=== PATIENT | male | born 1965 | race Caucasian/White ===

== ENCOUNTER 2017-11-06 09:02 | Day surgery (SDC) | payer OTHER ==
[2017-11-06 09:37] LABS: MPV 10.5 fL (7.6-11.3)
[2017-11-06 09:42] LABS: Protime INR 1.04
[2017-11-06 09:54] LABS: Platelet Estimate DECR
--- NOTE | 2017-11-06 12:26 | RAD REPORT ---
EXAM DESCRIPTION: RAD - Myelography Lumbar - 11/06/2017 12:12 pm CLINICAL HISTORY: Back pain, prior L5-S1 fusion, lumbar radiculopathy with patient provided history of new left lower extremity radiculopathy. COMPARISON: CT lumbar spine same date, myelogram and CT lumbar spine August 2014 TECHNIQUE: The myelogram procedure, risks and alternatives to the procedure were discussed with the patient in detail. After answering all questions, both oral and written consent were obtained. Time-o ut procedure was performed. Patient had no contraindicated allergy or medication history. The patient was placed in an oblique prone position on the fluoroscopic table. The skin of the lower back was prepped and draped in the usual sterile fashion. After anesthetizing the skin and deeper sof t tissues with 1% lidocaine, a 22 gauge needle was advanced into the thecal sac at the L3 level. Intrathecal placement was confirmed. Approximately 10 mL of Isovue M 200 contrast material was instil led into the thecal sac. At the conclusion of the procedure the needle was withdrawn and a sterile bandage placed over the pun cture site. The patient tolerated the procedure well without immediate complications. Post-procedure care and precaution instructions were discussed with the patient before the LP procedure. Patient was transferred to same-day surgery for postprocedure monitoring. IMPRESSION: Successful fluoroscopic guided lumbar myelogram performed. Myelogram findings are incorp orated into the CT lumbar spine report. Fluoro time 2 minutes 36 seconds. Exposure was 192.85 mGy.
--- NOTE | 2017-11-06 12:49 | RAD REPORT ---
EXAM DESCRIPTION: CT - Spine Lumbar Wo Con - 11/06/2017 12:09 pm CLINICAL HISTORY: Lumbar radiculopathy, left lower extremity radiculopathy, prior L5-S1 fusion, hist ory of neurostimulator not effective in pain relief per patient. COMPARISON: Lumbar myelogram images same date, myelogram and CT lumbar spine images August 2014 TECHNIQUE: Thin section axial imaging of the lumbar spine was performed. Sagittal and coronal recon struction images were generated and reviewed. Axial thin section angled images through each disc spac e also generated and reviewed. All CT scans are performed using dose optimization technique as appropriate and may include automated exposure control or mA/KV adjustment according to patient size. FINDINGS: L1 body shows a slight wedge configuration that is stable from the prior imaging. This cou ld be the sequela of an old injury or normal anatomic variant. No active L1 process seen. The L2- L5 bodies are normal in height and alignment. There is a well-healed L5-S1 fusion. No fracture of the fu rico hardware identifiable. No acute bone process identifiable. Since the last examination neurostimulator device has been placed. Wires enter the central canal in t he T12-L1 region. Normal appearing conus terminates mid L2. No clumping or thickening of the cauda equina. No myelogram findings of arachnoiditis. T12-L1 level: No herniation or significant disc bulge. No canal or foramen stenosis. Endplate spurrin g changes are present anteriorly and laterally. L1-L2 level: No herniation or significant disc bulge within the central canal. No central spinal sten osis. Mild bilateral foraminal disc bulge changes not resulting in encroachment. Mild facet degenerat vivian change. L2-3 level: No herniation or significant disc bulge. No canal or foramen stenosis. Minimal facet join t degenerative change. L3-4 level: No herniation or significant disc bulge in the central canal. No spinal stenosis. Mild fo raminal disc bulge not causing encroachment. Facet joint degenerative changes are present. L4-5 level: No herniation or significant disc bulge within the central canal. Left foraminal disc bul ge changes are present slightly increased over the prior study. Left L4 pars interarticularis defect has developed since 2014. No subluxation component. Facet joint degenerative changes are progressive. Thecal sac is approximately 13 13 mm AP x 11 mm TR. Prominent facet joint degenerative changes are p resent. The hypertrophy along the medial margin of the right facet does encroach into the thecal sac. These degenerative changes are progressive from 2015. Left-sided facet degenerative changes are prog ressive as well without same degree of central canal encroachment. L5-S1 level: Well fused level shows no encroachment into the central canal. No foraminal encroachment . No new or progressive facet joint degenerative change. IMPRESSION: Increased disc bulge in the left foramen L4-5 since 2015. Left foraminal encroachment is evident at this level. Progressive facet joint degenerative change at L4-5 with greater hypertrophy along the medial margin right side facet encroaching into the central canal only slightly. No central spinal stenosis. Left L4 pars interarticularis defect has developed since 2014. No associated L4 subluxation. Elsewhere in the lumbar spine no significant new or progressive degenerative process. No myelogram or CT findings of arachnoiditis.
[2017-11-06] MEDS ORDERED: HYDROCODONE/APAP 7.5/325 MG TAB ONE (12:56)
== END 2017-11-06 14:20 | disposition home or self-care (01) ==
LOC: DS 09:02
PROVIDERS: ATTEND Specialist
PROC: BR29ZZZ Computerized Tomography (CT Scan) of Lumbar Spine (ICD-10-PCS; principal; 2017-11-06)
PROC: B01BYZZ Fluoroscopy of Spinal Cord using Other Contrast (ICD-10-PCS; 2017-11-06)
DX: M54.16 Radiculopathy, lumbar region (principal); M54.5 Low back pain; M79.605 Pain in left leg; R20.0 Anesthesia of skin
CPT/HCPCS: 36415; 62304; 72131; 85049; 85610; 85730; Q9966